=== PATIENT | male | born 1985 | race Caucasian/White ===

== ENCOUNTER 2022-02-07 14:29 | Observation (INO) | payer OTHER, SELFPAY ==
--- NOTE | 2022-02-07 14:26 | ECG_ITS ---
APPROVED REPORT Exam: Resting ECG HR:107 bpm ECG Measurements Heart Rate 107 AXES [place] 137 P 77 QRSd 106 QRS 73 QT 328 T 77 QTc 391 Conclusion SINUS TACHYCARDIA POSSIBLE LEFT ATRIAL ENLARGEMENT [-0.1mV P-WAVE IN V1/V2] ABNORMAL RHYTHM ECG UNCONFIRMED REPORT Electronically signed by : Jamshid Mattson MD 02/08/2022 15:49:18
[2022-02-07 14:30] VITALS: BP 137/96; PULSE 108; RESP 18; TEMP 36.6; O2SAT 100; BMI 20.9
--- NOTE | 2022-02-07 14:45 | PC.NURSE ---
patient walked out of ED room 1 and ambulated to [facility] where he laid down on the floor and would not respond to Tanisha Reyes RN to get back up. Patient spit on the floor and kept rolling around. We rolled patient onto a blanket and he was carried back to ED room 1 with assistance x 3 and laid back in the bed. No complications. V/S stable. Tanisha Reyes RN at BS
--- NOTE | 2022-02-07 14:58 | XR_ITS ---
PROCEDURE INFORMATION: Exam: XR Chest Exam date and time: 02/07/2022 3:27 PM Age: 36 years old Clinical indication: Shortness of breath; Additional info: Feeling of lungs closing in TECHNIQUE: Imaging protocol: XR of the chest. Views: 2 views. COMPARISON: No relevant prior studies available. FINDINGS: Airway: Patent Lungs: Unremarkable. No consolidation. Pleural spaces: Unremarkable. No pleural effusion. No pneumothorax. Heart/Mediastinum: Unremarkable. No cardiomegaly. Bones/joints: No acute skeletal abnormality or aggressive osseous lesion. IMPRESSION: No acute findings.
[2022-02-07 15:01] VITALS: BP 116/71; RESP 22; O2SAT 100
--- NOTE | 2022-02-07 15:15 | HMH.EDGENADL ---
ED Disposition Clinical Impression: Drug abuse, Methamphetamine abuse, Opiate withdrawal Disposition: Admitted as Observation Condition on Discharge: Fair Referrals: Provider,Referral, [Primary Care Provider] - - Critical Care Critical Care Time: No Attestation: On 02/07/22, the high probability of a clinically significant, sudden or life threatening deterioration of the following system(s) required my full and direct attention, intervention and personal management. The time I documented below is in addition to time spent performing reported procedures but includes the following listed in this critical care notation. Medical Decision Making - Adryan Inquiry Pt receiving controlled substance: No Vital Signs: 02/07/22 14:30 02/07/22 15:01 02/07/22 15:31 Temperature 97.8 F Temperature Source Oral Pulse Rate 67 Pulse Rate [Left Radial] 108 H Respiratory Rate 18 22 24 Blood Pressure 116/71 108/80 L Blood Pressure [Right Arm] 137/96 H Blood Pressure Mean 83 89 Blood Pressure Mean [Right Arm] 109 Blood Pressure Source [Right Arm] Automatic Cuff Blood Pressure Position [Right Arm] Sitting 02 Sat by Pulse Oximetry 100 100 100 Oxygen Delivery Method Room Air 02/07/22 16:00 Temperature Temperature Source Pulse Rate 75 Pulse Rate [Left Radial] Respiratory Rate Blood Pressure 111/71 Blood Pressure [Right Arm] Blood Pressure Mean 85 Blood Pressure Mean [Right Arm] Blood Pressure Source [Right Arm] Blood Pressure Position [Right Arm] 02 Sat by Pulse Oximetry 100 Oxygen Delivery Method - Lab Data Lab Results 02/07/22 15:52: WBC 12.0 H, RBC 5.30, Hgb 16.0, Hct 47.1, MCV 88.8, MCH 30.3, MCHC 34.1, RDW 13.8, Plt Count 494 H, MPV 10.3, Neut % (Auto) 81.9 H, Lymph % (Auto) 13.1, [place] % (Auto) 2.5, Eos % (Auto) 1.4, Baso % (Auto) 1.1, Neut # (Auto) 9.9 H, Lymph # (Auto) 1.6, [place] # (Auto) 0.3, Eos # (Auto) 0.2, Baso # (Auto) 0.1 02/07/22 15:52: Sodium 140, Potassium 3.3 L, Chloride 99, Carbon Dioxide 27, Anion Gap 17.3 H, BUN 13, Creatinine 0.70, Estimated Creat Clear 119, Estimated GFR 126, Est GFR ( Amer) 153, Glucose 138 H, Calcium 11.6 H, Total Bilirubin 0.7, AST 130 H, ALT 173 H, Alkaline Phosphatase 136 H, Troponin I < 0.01, Total Protein 9.7 H, Albumin 5.0, Globulin 4.7 H, Albumin/Globulin Ratio 1.1, Salicylates < 1.0 L, Acetaminophen < 10 L 02/07/22 16:49: Troponin I < 0.01 02/07/22 18:59: Ammonia < 9 L Result diagrams: 02/07/22 15:52 02/07/22 15:52 Orders (Tests/Meds): ED MEDICATIONS Generic Name Dose Route Start Last Admin Trade Name Freq PRN Reason Stop Dose Admin Sodium Chloride 10 ml 02/07/22 14:59 Sodium Chloride 0.9% 10ml Flush Syringe IV 03/09/22 14:58 NEEDED PRN Maintain IV Site ORDERS Category Date Time Status Drug Screen,Urine Stat Lab 02/07/22 14:59 Ordered Hepatitis Panel (4) Routine Lab 02/07/22 16:49 Received Troponin I Q3H Lab 02/07/22 21:00 Ordered - Radiology Data #1 Image(s): Chest Image Reviewed: Yes I reviewed the patient's radiology image, Yes I have reviewed radiologist's interpretation Preliminary Findings: Normal/NAD PROCEDURE INFORMATION: Exam: XR Chest Exam date and time: 02/07/2022 3:27 PM Age: 36 years old Clinical indication: Shortness of breath; Additional info: Feeling of lungs closing in TECHNIQUE: Imaging protocol: XR of the chest. Views: 2 views. COMPARISON: No relevant prior studies available. FINDINGS: Airway: Patent Lungs: Unremarkable. No consolidation. Pleural spaces: Unremarkable. No pleural effusion. No pneumothorax. Heart/Mediastinum: Unremarkable. No cardiomegaly. Bones/joints: No acute skeletal abnormality or aggressive osseous lesion. IMPRESSION: No acute findings. - ECG Data Tracing #1 EKG interpreted by Laith Payton MD: Rhythm: sinus tachyc
[2022-02-07 15:31] VITALS: BP 108/80; PULSE 67; RESP 24; O2SAT 100
--- NOTE | 2022-02-07 15:31 | PC.NURSE ---
AZEB WOLFF at ; Tanisha Reyes, RN at
--- NOTE | 2022-02-07 15:38 | PC.NURSE ---
Mother at stating the pt come back from being with a friend and told her he did some meth and thought it had narcan in it so he gave his self narcan.
[2022-02-07 16:00] VITALS: BP 111/71; PULSE 75; O2SAT 100
[2022-02-07 16:07] LABS: Basophils # 0.1 K/mm3 (0-0.2); Basophils % 1.1 % (0.1-2.0); Eosinophils # 0.2 K/mm3 (0.0-0.4); Eosinophils % 1.4 % (0.1-12.0); Hematocrit 47.1 % (42.0-52.0); Lymphocytes # 1.6 K/mm3 (0.7-4.5); Lymphocytes % 13.1 % (10-50); Mean Corpuscular HGB Conc 34.1 g/dL (31.8-35.4); Mean Corpuscular Hemoglobin 30.3 pg (27.0-31.2); Mean Corpuscular Volume 88.8 fl (80-94); Mean Platelet Volume 10.3 fl (7.4-10.4); Monocytes # 0.3 K/mm3 (0.1-1.0); Monocytes % 2.5 % (1.7-9.3); Neutrophils # 9.9 K/mm3 (1.8-7.8); Neutrophils % 81.9 % (37.0-80.0); Platelet Count 494 K/mm3 (142-424); Red Cell Distribution Width 13.8 % (11.5-17.5)
[2022-02-07 16:10] LABS: Chloride 99 mmol/L (98-107); Potassium 3.3 mmoL/L (3.5-5.1); Sodium 140 mmol/L (136-145)
[2022-02-07 16:13] LABS: Alanine Aminotransferase 173 U/L (12-78); Albumin/Globulin Ratio 1.1 (1.1-1.8); Alkaline Phosphatase 136 U/L (38-126); Anion Gap 17.3 mEq/L (5-15); Aspartate Amino Transferase 130 U/L (17-59); Bilirubin,Total 0.7 mg/dl (0.2-1.3); Blood Urea Nitrogen 13 mg/dl (9-20); Calcium 11.6 mg/dl (8.4-10.2); Carbon Dioxide 27 mmol/L (22.0-30.0); Creatinine Clearance Estimated 119 mL/min (50-200); Estimated Glomerular Filt Rate 126 ml/min (>60); GFR (African American) 153 ML/MIN (>60); Globulin 4.7 g/dL (1.3-3.2); Glucose 138 mg/dl (74-100); Total Protein,Serum 9.7 g/dl (6.3-8.2)
[2022-02-07 16:17] LABS: Acetaminophen < 10 ug/ml (10-30); Salicylate < 1.0 mg/dL (2.0-20.0)
[2022-02-07 16:27] LABS: Troponin I < 0.01 ng/ml (0.00-0.034)
--- NOTE | 2022-02-07 17:34 | PC.NURSE ---
pt in room in the stretcher.
--- NOTE | 2022-02-07 18:26 | PC.NURSE ---
pt has been asked multiple times not to spit in the floor. emesis was all over the floor
--- NOTE | 2022-02-07 18:38 | PC.NURSE ---
AZEB WOLFF at ; Tanisha Reyes, RN at
[2022-02-07 19:16] LABS: Ammonia < 9 umol/L (9-30)
--- NOTE | 2022-02-07 19:46 | PC.NURSE ---
patient refused to give urine or let nursing staff cath him for a urine sample
--- NOTE | 2022-02-07 19:54 | PC.NURSE ---
Dr. Keenan hollis re: admission
[2022-02-07 19:56] LABS: Troponin I < 0.01 ng/ml (0.00-0.034)
--- NOTE | 2022-02-07 20:05 | PC.NURSE ---
ED doctor on phone with Dr. Hussein re: admission
--- NOTE | 2022-02-07 20:15 | PC.NURSE ---
Patient admitted to [facility] to Dr. Hussein with Opiate withdrawal.
[2022-02-07 20:27] LABS: Coronavirus 19, PCR Not Detected (NotDetected); Influenza A, PCR Not Detected (NotDetected); Influenza B, PCR Not Detected (NotDetected)
--- NOTE | 2022-02-07 20:35 | PC.NURSE ---
Mother, Hanane, advised staff that she took pt keys with her.
[2022-02-07 21:05] VITALS: BP 120/85; PULSE 92; RESP 20; TEMP 37.2; O2SAT 95
--- NOTE | 2022-02-07 21:19 | PC.NURSE ---
patient up to floor via wheelchair at this time
[2022-02-07 21:38] VITALS: BP 120/85; PULSE 92; RESP 17; TEMP 36.9; O2SAT 99; BMI 18.0
[2022-02-08 04:00] VITALS: BP 102/80; PULSE 101; RESP 17; TEMP 36.8; O2SAT 93
--- NOTE | 2022-02-08 05:05 | PC.NURSE ---
Addendum entered by Priscila Acosta RN 02/08/22 05:47: pt has refused to have fluids infused Original Note: pt has not rested well since arriving to floor, has refused to keep gown on, has been incontinent of bowel and bladder, has been trying to leave room, tech at bedside for safety, bed alarm on, pt can only state name, has started to ambulate to BR with SB assist
[2022-02-08 05:28] VITALS: BMI 17.9
--- NOTE | 2022-02-08 07:19 | P.CONPHA_ITS ---
[facility] VTE Monitoring - Patient Demographics Admission date: 02/07/22 Report Date: 02/08/22 Time: 07:19 Allergies/Adverse Reactions: Patient Allergies No Known Allergies Allergy (Verified 02/08/22 00:21) Height: 1.65 m Weight: 48.897 kg Patient Problems: Current Active Problems Drug abuse (Acute) Methamphetamine abuse (Acute) Opiate withdrawal (Acute) - VTE Risk Labs: VTE Related Lab Results Hgb 16.0 g/dL (14.1-18.0) 02/07/22 15:52 Hct 47.1 % (42.0-52.0) 02/07/22 15:52 Plt Count 494 K/mm3 (142-424) H 02/07/22 15:52 BUN 13 mg/dl (9-20) 02/07/22 15:52 Creatinine 0.70 mg/dl (0.66-1.25) 02/07/22 15:52 Estimated Creat Clear 119 mL/min (50-200) 02/07/22 15:52 Was VTE Risk Assessment Performed: Yes VTE Score: 0 - Prophylaxis VTE Prophylaxis Ordered?: Yes Types of VTE Prophylaxis: TEDS Knee High Location of Applied Device: Bilateral Lower Extremeties
--- NOTE | 2022-02-10 21:06 | HMH.HPDC ---
General - General Admission date:: 02/07/22 Discharge date: 02/08/22 *Admission Date: 02/07/22 *Chief complaint: intoxication *History of present illness: Patient presented to the ER, see ER documentation for full details. Concern for intoxication and expressed concern for overdose. Unable to obtain history from patient as he had left AMA prior to being I me. Full details and ER note. 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 *Occupational Status:: other Housing: house Household Members: family *Travel in the last 8 weeks: None Family Hx:: Unable to obtain Review of Systems - Review of Systems Review of systems:: other (Left AMA before obtaining) Exam Vital signs and Labs for Last 24 Hours: Temp Pulse Resp BP Pulse Ox 98.3 F 101 H 17 102/80 L 93 L 02/08/22 04:00 02/08/22 04:00 02/08/22 04:00 02/08/22 04:00 02/08/22 04:00 I & O for Last 24 hours: Intake & Output 02/07/22 02/08/22 02/09/22 02/10/22 23:59 23:59 23:59 23:59 Weight 49.13 kg 48.897 kg Narrative: Not performed - *Routine HEENT Exam Head: Present: other Eye: Present: other ENT: Present: other - *Routine Respiratory Exam Present: other - *Routine Cardiovascular Exam Present: RRR, other - *Routine Abdominal Exam Present: other - *Routine Rectal Exam Rectal:: deferred - *Routine Genitalia Exam Genitalia:: deferred Hospital Course Hospital Course: Admitted, got to the floor, left AMA before being assessed by admitting physician DS: Diagnosis - Discharge Diagnosis (1) Drug abuse Status: Acute (2) Methamphetamine abuse Status: Acute (3) Opiate withdrawal Status: Acute Discharge Plan - Patient Discharge Instructions Patient Instructions: DI for Opioid Use Disorder, DI for Substance Use Disorder - Follow up Plan Disposition: Left Against Medical Advice Condition at discharge:: Improving Home Medications: Home Medications Medication Instructions Recorded Confirmed Type No Known Home Medications 02/07/22 02/08/22 History Prescriptions/Medication Reconciliation: No Action No Known Home Medications - Problem Reconciliation Problems Reviewed?: Yes
--- NOTE | 2022-02-11 13:48 | CARE MANAGER ---
Contacted patient related to discharge from hospital. Patient signed out AMA but does appreciate what we did for him. He states he feels like a totally different person. He denies any questions. Encourage him to make a follow up appointment with a PCP.
[2022-02-20 18:38] LABS: Hep A Ab, IgM NEGATIVE; Hepatitis B Core Antibody IgM NEGATIVE; Hepatitis B Surface Antigen NEGATIVE; Hepatitis C Antibody >11.0
== END 2022-02-08 07:24 | disposition left against medical advice (07) ==
LOC: ER 20:13 → 2ND 20:22
PROVIDERS: Admitting Provider Internal Medicine Adolescent Medicine; Emergency Provider Emergency Medicine; Visit Provider Internal Medicine Adolescent Medicine
DX: F11.23 Opioid dependence with withdrawal (principal); Z28.310 Unvaccinated for COVID-19; F15.13 Other stimulant abuse with withdrawal
CPT/HCPCS: 71046; 80053; 80074; 80329; 82140; 84484; 85025; 93005; 99285; C9803; G0378; U0003; U0005

== ENCOUNTER 2022-07-10 15:58 | Emergency (ER) | payer OTHER, SELFPAY ==
[2022-07-10] VITALS (8 sets, daily range): BP systolic 119–134; BP diastolic 69–80; PULSE 65–80; RESP 15–20; TEMP 37.1; O2SAT 97–100; BMI 19.8
--- NOTE | 2022-07-10 16:09 | XR_ITS ---
PROCEDURE INFORMATION: Exam: XR Chest Exam date and time: 07/10/2022 4:27 PM Age: 36 years old Clinical indication: Injury or trauma; Other: Overdose TECHNIQUE: Imaging protocol: Radiologic exam of the chest. Views: 1 view. COMPARISON: CR XR CHEST 2V 02/07/2022 3:27 PM FINDINGS: The thorax is partially obscured by overlying EKG leads. Lungs: Hyperinflation, without acute airspace disease. Pleural spaces: No pleural effusion. Heart/Mediastinum: Normal configuration of the heart. Bones/joints: Unremarkable. IMPRESSION: Hyperinflation, without acute airspace disease.
--- NOTE | 2022-07-10 16:39 | HMH.EDGENADL ---
Discharge Plan Disposition Patient Disposition: Home, Self-Care Condition: Fair Prescriptions Prescriptions: New naloxone [Narcan] 4 mg/actuation spray,non-aerosol 4 mg intranasal Q2M PRN (Reason: opioid overdose) Qty: 2 0RF Rx Instructions: spray 1 dose into ONE nostril; alternate nostrils w each dose until help arrives Referrals Follow up/Referrals: Provider,Referral, MD [Primary Care Provider] - See instructions Activity Restrictions/Add. Instructions Additional Instructions/Restrictions: You have been evaluated for drug overdose. Please fill prescription for naloxone. Teach others around you how to use it if they find you overdosed. You may use it for someone else. Please return to the emergency department or follow-up with your primary care doctor when you decide you would like drug treatment. Return to the emergency department for any new or worsening symptoms Clinical Impressions Clinical Impression: Accidental heroin overdose Instructions Patient Instructions: DI for Drug Overdose in Adults Discharge ED Provider: Alaina Quinones Adult HPI General Chief complaint: Overdose Stated complaint: OVERDOSE Time Seen by Provider: 07/10/22 16:08 Mode of Arrival: EMS Source of Information: Patient Limitations: No Limitations Description of Symptoms (Recalled from ER Triage Doc. by RN): pt to ed c/o overdose. pt admits to shooting up fentanyl. pr ems pt self-administered nasal narcan before calling ems. ems reports giving her 1mg of IV narcan in route to ed. pt denies any pain. History of Present Illness HPI narrative: 36-year-old male presenting to the emergency department by EMS. He called EMS for himself. Told them he had overdosed on heroin. He uses heroin every day. Accidentally took too much. Administered 1 dose of intranasal Narcan to himself. When EMS arrived he was lethargic, minimally responsive. They replaced an IV and gave 1 mg IV naloxone. After that he was awake and alert. Says he uses heroin every day. Was not trying to . Accidentally took too much. He does not think that he has an addiction problem. Does not think that now is a good time to stop using. Denies coingestions. No current headache, chest pain, shortness of breath Related Data Previous Rx's Medication Instructions Recorded naloxone 4 mg/actuation nasal 4 mg intranasal Q2M PRN opioid 07/10/22 spray (Narcan) overdose #2 ea Allergies Allergy/AdvReac Type Severity Reaction Status Date / Time No Known Allergies Allergy Verified 02/08/22 00:21 [facility] Social History Smoking Status: Current every day smoker tobacco type: cigarettes packs per day: 1 second hand exposure: Yes alcohol intake: never substance use type: methamphetamine current occupational status: other Travel in the last 8 weeks: None household members: family housing: house ROS Obtained: Yes All systems reviewed & no additional complaints except as documented Constitutional Constitutional: Reports fatigue, Denies fever(s), Denies headache(s), Reports poor appetite and Reports malaise Eyes Eyes: Denies blurry vision ENT Ears, Nose, Mouth, and Throat: Denies dizziness, Denies headache(s) and Denies neck pain Cardiovascular Cardiovascular: Denies chest pain, Denies dyspnea and Denies palpitations Respiratory Respiratory: Denies cough and Denies dyspnea Gastrointestinal Gastrointestingal: Reports diarrhea; Denies abdominal pain or vomiting Musculoskeletal Musculoskeletal: Denies neck pain Neurologic Neurologic: Denies dizziness and Denies headache(s) Endocrine Endocrine: Reports fatigue and Denies palpitations Physical Exam General General appearance: alert and in no apparent distress Head Head exam: atraumatic and normocephalic Eye Eye exam: Present normal appearance and EOMI; Absent conjunctival redness ENT ENT exam: Present normal exam, normal oropharynx and mucous membranes moist Respiratory Respirat
--- NOTE | 2022-07-10 16:48 | PC.NURSE ---
father at the bedside
[2022-07-10 17:23] LABS: POC Glucose,Bedside 110 (70-110)
--- NOTE | 2022-07-10 18:40 | PC.NURSE ---
no needs at this time. updated that we are waiting 4h post narcan for obs.
== END 2022-07-10 19:55 | disposition home or self-care (01) ==
PROVIDERS: Emergency Provider Emergency Medicine
DX: T40.1X1A Poisoning by heroin, accidental (unintentional), initial encounter (principal)
CPT/HCPCS: 71045; 82962; 99283

== ENCOUNTER 2022-09-12 12:26 | Emergency (ER) | payer OTHER, SELFPAY ==
[2022-09-12] VITALS (8 sets, daily range): BP systolic 109–157; BP diastolic 75–96; PULSE 67–94; RESP 12–22; TEMP 36.5–36.7; O2SAT 97–100; BMI 22.8
[2022-09-12 12:59] LABS: Chloride 98 mmol/L (98-107); Potassium 3.5 mmoL/L (3.5-5.1); Sodium 138 mmol/L (136-145)
[2022-09-12 13:01] LABS: Alanine Aminotransferase 50 U/L (12-78); Aspartate Amino Transferase 46 U/L (17-59); Basophils # 0.1 K/mm3 (0-0.2); Blood Urea Nitrogen 20 mg/dl (9-20); Creatinine Clearance Estimated 107 mL/min (50-200); Eosinophils # 0.3 K/mm3 (0.0-0.4); Eosinophils % 3.3 % (0.1-12.0); Estimated Glomerular Filt Rate 94 ml/min (>60); GFR (African American) 114 ML/MIN (>60); Hematocrit 46.1 % (42.0-52.0); Lymphocytes # 3.6 K/mm3 (0.7-4.5); Lymphocytes % 34.3 % (10-50); Mean Corpuscular HGB Conc 32.6 g/dL (31.8-35.4); Mean Corpuscular Hemoglobin 29.4 pg (27.0-31.2); Mean Corpuscular Volume 90.3 fl (80-94); Mean Platelet Volume 9.3 fl (7.4-10.4); Monocytes # 0.6 K/mm3 (0.1-1.0); Monocytes % 5.6 % (1.7-9.3); Neutrophils # 5.8 K/mm3 (1.8-7.8); Neutrophils % 55.8 % (37.0-80.0); Platelet Count 585 K/mm3 (142-424); Red Blood Count 5.11 M/mm3 (4.60-6.20); Red Cell Distribution Width 12.9 % (11.5-17.5); White Blood Count 10.4 K/mm3 (4.8-10.8)
[2022-09-12 13:02] LABS: Albumin Level 4.8 g/dl (3.5-5.0); Albumin/Globulin Ratio 1.3 (1.1-1.8); Alkaline Phosphatase 109 U/L (38-126); Anion Gap 13.5 mEq/L (5-15); Bilirubin,Total 0.5 mg/dl (0.2-1.3); Calcium 10.5 mg/dl (8.4-10.2); Carbon Dioxide 30 mmol/L (22.0-30.0); Globulin 3.8 g/dL (1.3-3.2); Glucose 103 mg/dl (74-100); Total Protein,Serum 8.6 g/dl (6.3-8.2)
--- NOTE | 2022-09-12 13:17 | PC.NURSE ---
PT ASSISTED TO BR
--- NOTE | 2022-09-12 13:24 | PC.NURSE ---
pt ambulated up to BR with assistance , urine sent to lab
--- NOTE | 2022-09-12 13:25 | HMH.EDGENADL ---
Discharge Plan Disposition Patient Disposition: Home, Self-Care Condition: Good Prescriptions Prescriptions: No Action naloxone [Narcan] 4 mg/actuation spray,non-aerosol 4 mg intranasal Q2M PRN (Reason: opioid overdose) Qty: 2 0RF Rx Instructions: spray 1 dose into ONE nostril; alternate nostrils w each dose until help arrives Referrals Follow up/Referrals: Provider,Referral, [Primary Care Provider] - See instructions Activity Restrictions/Add. Instructions Additional Instructions/Restrictions: Follow-up with primary care provider, call for appointment. Clinical Impressions Clinical Impression: Substance abuse, Opiate withdrawal, Methamphetamine abuse Instructions Patient Instructions: DI for Substance Use Disorder, DI for Drug or Alcohol Withdrawal, DI for Drug Overdose in Adults Discharge ED Provider: Laith Payton General Adult HPI General Chief complaint: Overdose Stated complaint: OVERDOSE Time Seen by Provider: 09/12/22 13:24 Mode of Arrival: Wheelchair Limitations: No Limitations Description of Symptoms (Recalled from ER Triage Doc. by RN): PT STATES HE OVERDOSED ABOUT 0900 ON [place]. REPORTS SHOOTING UP IN RIGHT ARM. THEN SELF ADMINISTERED NASAL NARCAN X 3. History of Present Illness HPI narrative: Patient states that he overdosed on fentanyl this morning. Administered Narcan 2 himself 3 times. Arrives in apparent withdrawal with vomiting and fecal incontinence. Currently says he is feeling better. Denies any pain. Denies any difficulty breathing. Related Data Previous Rx's Medication Instructions Recorded naloxone 4 mg/actuation nasal 4 mg intranasal Q2M PRN opioid 07/10/22 spray (Narcan) overdose #2 ea Allergies Allergy/AdvReac Type Severity Reaction Status Date / Time No Known Allergies Allergy Verified 02/08/22 00:21 [facility] Disclaimer: The information contained in this section may have been updated after the patient was seen, as this information can be updated by other users. Medical History (Updated 09/12/22 @ 17:04 by Laith Payton MD) No significant past medical history Family History (Updated 09/12/22 @ 13:45 by Jeanne Pete RN) Other No significant family history Social History (Updated 09/12/22 @ 13:45 by Jeanne Pete RN) Smoking Status: Current every day smoker tobacco type: cigarettes packs per day: 1 second hand exposure: Yes alcohol intake: current substance use type: methamphetamine current occupational status: other Travel in the last 8 weeks: None household members: family housing: house ROS Obtained: Yes Systems reviewed as appropriate & no additional complaints except as documented Constitutional Constitutional: Denies fever(s), Denies headache(s) and Denies weakness ENT Ears, Nose, Mouth, and Throat: Denies headache(s), Denies nasal discharge and Denies sore throat Cardiovascular Cardiovascular: Denies chest pain Respiratory Respiratory: Denies shortness of breath and Denies cough Gastrointestinal Gastrointestingal: Reports diarrhea and vomiting; Denies abdominal pain or constipation Genitourinary Male Genitourinary: Denies difficulty urinating and Denies flank pain Musculoskeletal Musculoskeletal: Denies numbness Neurologic Neurologic: Denies headache(s), Denies numbness and Denies weakness Physical Exam General General appearance: alert Comment: Upon arrival laying with eyes closed turning his head [id number] repeatedly. When spoken to he awakens and opens his eyes and cooperates. Speech is mumbling and at times incoherent. He does answer simple yes/no questions and some short answer questions. Head Head exam: atraumatic and normocephalic Eye Eye exam: Present normal appearance, PERRL (Pupils are 4 to 5 mm and equal bilaterally) and EOMI ENT ENT exam: Present mucous membranes dry Neck Neck exam: Present normal inspection and trachea midline Chest Chest inspection: Present baljeet
--- NOTE | 2022-09-12 13:33 | PC.NURSE ---
pt in restroom cleaning himself up, have checked on him several times and he said he was fine
--- NOTE | 2022-09-12 13:43 | PC.NURSE ---
PT RETURNED TO BED, WARM BLANKETS PROVIDED
[2022-09-12 13:55] LABS: Barbiturates Screen,Urine Negative ng/ml (<200); Benzodiazepines Screen,Urine Negative ng/ml (<200)
[2022-09-12 13:56] LABS: Amphetamine/Metha Screen,Urine Positive ng/ml (<1000); Cannabinoid Screen,Urine Negative ng/ml (<50)
[2022-09-12 14:00] LABS: Opiate Screen,Urine Negative ng/ml (<300)
--- NOTE | 2022-09-12 14:02 | PC.NURSE ---
PT RESTING WITH EYES CLOSED, NO NEEDS AT THIS TIME
[2022-09-12 14:08] LABS: Cocaine Screen,Urine Negative ng/ml (<300); Methadone Screen,Urine Negative ng/ml (<300)
[2022-09-12 14:09] LABS: Phencyclidine Screen,Urine Negative ng/ml (<25)
--- NOTE | 2022-09-12 15:18 | PC.NURSE ---
pt in bed sleeping
--- NOTE | 2022-09-12 16:43 | PC.NURSE ---
at pt is A&O x4, pt is ready to go home.
--- NOTE | 2022-09-12 17:19 | PC.NURSE ---
mother here to get pt, pt in room getting ready to leave
== END 2022-09-12 17:15 | disposition home or self-care (01) ==
PROVIDERS: Emergency Provider Emergency Medicine
DX: F11.13 Opioid abuse with withdrawal (principal); R11.10 Vomiting, unspecified; R15.9 Full incontinence of feces; T40.411A Poisoning by fentanyl or fentanyl analogs, accidental (unintentional), initial encounter; F17.210 Nicotine dependence, cigarettes, uncomplicated
CPT/HCPCS: 80053; 80305; 85025; 96374; 99284; J2405

== ENCOUNTER 2022-11-12 17:20 | Emergency (ER) | payer OTHER, SELFPAY ==
[2022-11-12 17:46] VITALS: BP 130/86; PULSE 78; RESP 20; TEMP 36.8; O2SAT 100; BMI 21.6
--- NOTE | 2022-11-12 17:57 | HMH.EDGENADL ---
Discharge Plan Disposition Patient Disposition: Home, Self-Care Prescriptions Prescriptions: No Action metoprolol tartrate 25 mg tablet 12.5 mg PO DAILY Qty: 15 2RF cephalexin 500 mg capsule 500 mg PO TID Qty: 21 0RF naloxone [Narcan] 4 mg/actuation spray,non-aerosol 4 mg intranasal Q2M PRN (Reason: opioid overdose) Qty: 2 0RF Rx Instructions: spray 1 dose into ONE nostril; alternate nostrils w each dose until help arrives Referrals Follow up/Referrals: Sergio Patton MD [Primary Care Provider] - See instructions Activity Restrictions/Add. Instructions Additional Instructions/Restrictions: No emergent medical condition identified. Please follow-up with Dr. Patton as previously instructed and reschedule your stress and echo that you missed recently. Please continue to eat and drink normally and follow-up with your methadone clinic as you have scheduled on the . Return with any concerning symptoms specifically if you pass out. Clinical Impressions Clinical Impression: Near syncope, Substance abuse Instructions Patient Instructions: DI for Syncope in Adults (Fainting), DI for Syncope in Children (Fainting) Discharge ED Provider: Arturo Up Adult HPI General Chief complaint: Syncope Stated complaint: feeling faint Time Seen by Provider: 11/12/22 17:57 Mode of Arrival: Ambulatory Source of Information: Patient Limitations: No Limitations Description of Symptoms (Recalled from ER Triage Doc. by RN): pt to ed states he has been having near syncopal episodes. pt states he is an active drug user of nothing specific and he states after he uses he has a near syncopal episode and narcans himself. History of Present Illness HPI narrative: Patient is a 36-year-old male who presents with near syncopal episodes over the last few months. States that he has been using meth chronically and recently stopped this 2 weeks ago and is now just using fentanyl. Patient denies any chest pain shortness of breath abdominal pain nausea vomiting or diarrhea. Denies any exertional symptoms. States that he was supposed to have a stress test and an echo on Fletcher's Day however he missed this because he stayed up all night watching TV with his dad. He is closely followed by Dr. Patton. He is currently completely asymptomatic and had an episode this morning. He does state that sometimes when he is doing drugs he will Narcan himself when he is concerning concerned that he is overdosing however he is not sure if his lightheaded symptoms are clearly associated with this. He has not lost consciousness and states that most of them he does not feel like is not lose consciousness he describes it more of his a lightheadedness but he has no no symptoms currently Related Data Previous Rx's Medication Instructions Recorded naloxone 4 mg/actuation nasal 4 mg intranasal Q2M PRN opioid 07/10/22 spray (Narcan) overdose #2 ea cephalexin 500 mg capsule 500 mg PO TID #21 caps 10/13/22 metoprolol tartrate 25 mg tablet 12.5 mg PO DAILY #15 tabs 10/13/22 Allergies Allergy/AdvReac Type Severity Reaction Status Date / Time No Known Allergies Allergy Verified 10/13/22 13:42 [facility] Disclaimer: The information contained in this section may have been updated after the patient was seen, as this information can be updated by other users. Medical History No significant past medical history Family History (Updated 10/13/22 @ 13:46 by Maile Shen) Father Diabetes Social History Smoking Status: Current every day smoker tobacco type: cigarettes packs per day: 1 second hand exposure: Yes alcohol intake: current substance use type: methamphetamine current occupational status: other Travel in the last 8 weeks: None household members: family housing: house ROS Obtained: Yes All syste
--- NOTE | 2022-11-12 17:58 | ECG_ITS ---
APPROVED REPORT Exam: Resting ECG HR:73 bpm ECG Measurements Heart Rate 73 AXES MO 143 P 55 QRSd 105 QRS 51 QT 372 T 60 QTc 398 Conclusion SINUS RHYTHM NORMAL ECG UNCONFIRMED REPORT Electronically signed by : Jamshid Mattson MD 11/13/2022 08:49:31
[2022-11-12 18:01] VITALS: BP 143/90; PULSE 76; O2SAT 99
[2022-11-12 18:53] VITALS: BP 132/76; PULSE 73; RESP 16; TEMP 37; O2SAT 99
== END 2022-11-12 18:58 | disposition home or self-care (01) ==
PROVIDERS: Emergency Provider Student in an Organized Health Care Education/Training Program; PCP Emergency Medicine
DX: R55 Syncope and collapse (principal); F19.99 Other psychoactive substance use, unspecified with unspecified psychoactive substance-induced disorder; F17.210 Nicotine dependence, cigarettes, uncomplicated; Z83.3 Family history of diabetes mellitus
CPT/HCPCS: 93005; 99283; 99284

== ENCOUNTER 2022-11-30 21:46 | Emergency (ER) | payer OTHER, SELFPAY ==
[2022-11-30 21:53] VITALS: BMI 22.4
[2022-11-30 22:00] VITALS: BP 145/85; PULSE 99; RESP 14; TEMP 36.3; O2SAT 99; BMI 22.4
--- NOTE | 2022-11-30 22:15 | PC.NURSE ---
Addendum entered by Michelle Garza RN 11/30/22 22:43: pt received NS bolus, pecid, reglan and zofran IV at 2215. orders are placed but not carrying over to the MAR. verified medications with CHRISTAL Thomason pt tolerated medication administration. Original Note: pt received
--- NOTE | 2022-11-30 22:21 | PC.NURSE ---
Dr. Patton at
--- NOTE | 2022-11-30 22:31 | PC.NURSE ---
pt came out of the room and stated i feel better and im tired im ready to leave. pt informed he would have to sign and AMA form and was agreeable. pt denies any complaints at this time
[2022-11-30 22:51] VITALS: BP 140/80; PULSE 98; RESP 18; TEMP 36.6; O2SAT 99
[2022-11-30 22:56] LABS: Microscopic, Urine URINE MICROSCOPIC (MICROSCOPIC)
[2022-11-30 22:57] LABS: Basophils # 0.1 K/mm3 (0-0.2); Basophils % 1.2 % (0.1-2.0); Eosinophils # 0.3 K/mm3 (0.0-0.4); Eosinophils % 2.3 % (0.1-12.0); Hematocrit 45.7 % (42.0-52.0); Hemoglobin 14.8 g/dL (14.1-18.0); Lymphocytes # 3.4 K/mm3 (0.7-4.5); Lymphocytes % 27.9 % (10-50); Mean Corpuscular HGB Conc 32.3 g/dL (31.8-35.4); Mean Corpuscular Hemoglobin 28.9 pg (27.0-31.2); Mean Corpuscular Volume 89.5 fl (80-94); Mean Platelet Volume 7.7 fl (7.4-10.4); Monocytes # 0.5 K/mm3 (0.1-1.0); Monocytes % 4.2 % (1.7-9.3); Neutrophils # 7.9 K/mm3 (1.8-7.8); Neutrophils % 64.4 % (37.0-80.0); Platelet Count 702 K/mm3 (142-424); Red Cell Distribution Width 13.4 % (11.5-17.5); White Blood Count 12.2 K/mm3 (4.8-10.8)
[2022-11-30 22:58] LABS: Appearance,Urine CLEAR (Clear); Bilirubin,Urine Negative (Negative); Blood, Urine Negative (Negative); Color,Urine YELLOW (Yellow); Glucose,Urine (UA) Negative (Negative); Ketones,Urine Negative (Negative); Leukocyte Esterase,Urine Negative (Negative); Nitrate,Urine Negative (Negative); Protein,Urine TRACE (Negative); Specific Gravity, Urine 1.015 (1.005-1.030)
[2022-11-30 22:58] LABS: Alanine Aminotransferase 32 U/L (12-78); Albumin Level 4.8 g/dl (3.5-5.0); Albumin/Globulin Ratio 1.2 (1.1-1.8); Alkaline Phosphatase 76 U/L (38-126); Amylase 100 U/L (30-110); Anion Gap 15.7 mEq/L (5-15); Aspartate Amino Transferase 31 U/L (17-59); Bilirubin,Total 0.6 mg/dl (0.2-1.3); Blood Urea Nitrogen 12 mg/dl (9-20); Calcium 9.2 mg/dl (8.4-10.2); Carbon Dioxide 29 mmol/L (22.0-30.0); Chloride 99 mmol/L (98-107); Creatinine Clearance Estimated 107 mL/min (50-200); Estimated Glomerular Filt Rate 108 ml/min (>60); GFR (African American) 130 ML/MIN (>60); Globulin 3.9 g/dL (1.3-3.2); Glucose 111 mg/dl (74-100); Lipase 36 U/L (23-300); Potassium 3.7 mmoL/L (3.5-5.1); Sodium 140 mmol/L (136-145); Total Protein,Serum 8.7 g/dl (6.3-8.2)
[2022-11-30 22:59] LABS: Mucus,Urine Trace /lpf; Squamous Epithelial Cell,Urine Occasional #/hpf (0-5)
--- NOTE | 2022-12-01 00:08 | HMH.EDABDPAI ---
Discharge Plan Disposition Patient Disposition: Left Against Medical Advice Condition: Good Prescriptions Prescriptions: No Action amoxicillin 500 mg capsule 500 mg PO Q12H 10 Days Qty: 20 0RF naloxone [Narcan] 4 mg/actuation spray,non-aerosol 4 mg intranasal Q2M PRN (Reason: opioid overdose) Qty: 2 0RF Rx Instructions: spray 1 dose into ONE nostril; alternate nostrils w each dose until help arrives Clinical Impressions Clinical Impression: Abdominal pain, IVDU (intravenous drug user) Instructions Patient Instructions: DI for Acute Abdominal Pain Discharge ED Provider: Pooja (ED)Sergio Abdominal Pain HPI General Chief Complaint: Abdominal Pain Stated Complaint: dizzy, stomach pain Time Seen by Provider: 11/30/22 22:00 Mode of Arrival: Ambulatory Source of Information: Patient and Medical Record Limitations: No Limitations Description of Symptoms (Recalled from ER Triage Doc. by RN): pt c/o feeling bloated in his abd. pt states over the past few months he has had RUQ pain and nausea. pt also states he has episodes of light headedness at which time his vision gets blurry. pt states the last episode of light headedness was a few hours ago. pt also reports using IV fentanyl daily. History of Present Illness HPI narrative: upper abd pain and rt upper abd pain with no fever - has hx of ivdu complaint: abdominal pain Onset (ago): day(s) Consistency: intermittent Location: RUQ Severity: similar to previous episodes Associated symptoms: nausea Related Data Previous Rx's Medication Instructions Recorded naloxone 4 mg/actuation nasal 4 mg intranasal Q2M PRN opioid 07/10/22 spray (Narcan) overdose #2 ea amoxicillin 500 mg capsule 500 mg PO Q12H infection 10 days 11/29/22 #20 caps Allergies Allergy/AdvReac Type Severity Reaction Status Date / Time No Known Allergies Allergy Verified 11/30/22 22:09 [facility] Disclaimer: The information contained in this section may have been updated after the patient was seen, as this information can be updated by other users. Medical History No significant past medical history Family History (Updated 10/13/22 @ 13:46 by Maile Shen) Father Diabetes Social History (Updated 11/30/22 @ 22:06 by Radha Branden, RN) Smoking Status: Never smoker second hand exposure: Yes alcohol intake: current substance use type: IV drugs and methamphetamine counseling given: Yes (pt reports injecting fentynl daily) current occupational status: other Travel in the last 8 weeks: None household members: family housing: house ROS Obtained: Yes All systems reviewed & no additional complaints except as documented Physical Exam General General appearance: alert Head Head exam: normocephalic Eye Eye exam: Present PERRL and EOMI; Absent scleral icterus ENT ENT exam: Present mucous membranes moist Neck Neck exam: Present full ROM and trachea midline; Absent tenderness Respiratory Respiratory exam: Present normal lung sounds bilaterally; Absent respiratory distress Cardiovascular Cardiovascular exam: Present regular rate; Absent systolic murmur or rubs Abdominal Exam Abdominal exam: Present soft, tenderness and Huff's sign; Absent guarding, rebound or rigidity Abdominal tenderness: Present RUQ and mild Extremities Exam Extremities exam: Present full ROM; Absent joint swelling Back Exam Back exam: Absent CVA tenderness (R) Neurological Exam Neurological exam: Present alert, oriented X3 and CN II-XII intact; Absent motor sensory deficit Psychiatric Psychiatric exam: Present normal affect Skin Skin exam: Absent rash Medical Decision Making Medical Records Medical records reviewed: Yes I reviewed the patient's medical records. Adryan Inquiry Pt receiving controlled substance: No Vital Signs: 11/30/22 22:00 11/30/22 22:51 Temperature 97.4 F L 98 F Temperature Source
== END 2022-11-30 22:55 | disposition left against medical advice (07) ==
PROVIDERS: Emergency Provider Emergency Medicine; PCP Emergency Medicine
DX: R10.11 Right upper quadrant pain (principal); R42 Dizziness and giddiness; F19.90 Other psychoactive substance use, unspecified, uncomplicated; R11.0 Nausea; Z83.3 Family history of diabetes mellitus
CPT/HCPCS: 80053; 81001; 82150; 83690; 85025; 96361; 96374; 96375; 96376; 99284; 99285; J2405

== ENCOUNTER 2023-01-15 11:37 | Emergency (ER) | payer OTHER, SELFPAY ==
[2023-01-15 11:38] VITALS: BP 147/76; PULSE 98; RESP 18; TEMP 36.7; O2SAT 99; BMI 22.4
--- NOTE | 2023-01-15 11:42 | PC.NURSE ---
MD at bedside for eye exam
--- NOTE | 2023-01-15 11:43 | PC.NURSE ---
MD at bedside performing eye exam.
--- NOTE | 2023-01-15 11:45 | HMH.EDEYEP ---
Discharge Plan Disposition Patient Disposition: Home, Self-Care Prescriptions Prescriptions: New amoxicillin 500 mg tablet 500 mg PO QID Qty: 40 0RF Referrals Follow up/Referrals: Sergio Patton MD [Primary Care Provider] - See instructions Activity Restrictions/Add. Instructions Additional Instructions/Restrictions: You can take [id number] Tylenol and/or Motrin for your pain. Your eye does not seem to have any foreign bodies in it and there does not seem to be any scratches on your cornea. I have sent in a prescription for antibiotics for your teeth. Return to the emergency department immediately if you feel worse in any way. Follow-up with an eye doctor if you do not feel better in the next 2 to 3 days. I also suggested you follow-up with a dentist to have your teeth extracted. Clinical Impressions Clinical Impression: Dental caries, Dental infection, UV keratitis Instructions Patient Instructions: DI for Keratitis Discharge ED Provider: Nate Nieto Eye Problem HPI General Chief complaint: Eye Problems Stated complaint: Right eye redness possible metal Time Seen by Provider: 01/15/23 11:45 Mode of Arrival: Ambulatory Source of Information: Patient Limitations: No Limitations Description of Symptoms (Recalled from ER Triage Doc. 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 pt has redness and tearing noted. pt denies blurred vision. pt states he was wearing a welding helmet. History of Present Illness HPI Narrative: Patient presents to the emergency department complaining of right-sided eye irritation after having been welding yesterday. The patient believes that he may have had a foreign body enter his eye while he was while brushing his [place]. The patient denies any visual disturbance. Related Data Previous Rx's Medication Instructions Recorded amoxicillin 500 mg tablet 500 mg PO QID #40 tabs 01/15/23 Allergies Allergy/AdvReac Type Severity Reaction Status Date / Time No Known Allergies Allergy Verified 12/09/22 13:52 [facility] Disclaimer: The information contained in this section may have been updated after the patient was seen, as this information can be updated by other users. Medical History No significant past medical history Family History Father Diabetes Social History Smoking Status: Current some day smoker tobacco type: cigarettes packs per day: 1 second hand exposure: Yes alcohol intake: current substance use type: IV drugs and methamphetamine counseling given: Yes (pt reports injecting fentynl daily) current occupational status: other Travel in the last 8 weeks: None household members: family housing: house ROS Obtained: Yes All systems reviewed & no additional complaints except as documented ENT Ears, Nose, Mouth, and Throat: Reports dental pain (Bad teeth for many years) Physical Exam General General appearance: alert and in no apparent distress Head Head exam: atraumatic Eye Eye exam: Present PERRL, conjunctival redness (Right) and other (A fluorescein stain was performed and shows no corneal abrasions or foreign bodies.); Absent discharge, periorbital swelling or periorbital tenderness ENT ENT exam: Present other (Diffuse widespread dental decay with gingival erythema) Neck Neck exam: Present normal inspection Respiratory Respiratory exam: Present normal lung sounds bilaterally Cardiovascular Cardiovascular exam: Present regular rate Neurological Exam Neurological exam: Present alert and oriented X3 Medical Decision Making Adryan Inquiry Pt receiving controlled substance: No Vital Signs: 01/15/23 11:38 Temperature 98.0 F Temperature Source Oral Pulse Rate [Right Radial] 98 H Respiratory Rate 18 Blood Pressure [Right
[2023-01-15 12:03] VITALS: BP 147/76; PULSE 98; RESP 18; TEMP 36.6; O2SAT 99
== END 2023-01-15 12:06 | disposition home or self-care (01) ==
LOC: ER 11:58
PROVIDERS: Emergency Provider Emergency Medicine; PCP Emergency Medicine
DX: H16.131 Photokeratitis, right eye (principal); F17.210 Nicotine dependence, cigarettes, uncomplicated
CPT/HCPCS: 90715; 96372; 99283; 99284

== ENCOUNTER 2023-12-04 12:47 | Emergency (ER) | payer OTHER, SELFPAY ==
[2023-12-04 12:48] VITALS: BP 140/88; PULSE 82; RESP 18; TEMP 36.8; O2SAT 99; BMI 23.3
--- NOTE | 2023-12-04 13:30 | PC.NURSE ---
pt taken something to drink, no new complaints at this time.
[2023-12-04] MEDS: TET/DIPHTH/PERT-ADULT 0.5ML SYRINGE 0.5 ML IM (14:11)
--- NOTE | 2023-12-04 14:16 | ED_ITS ---
Discharge Plan Disposition Patient Disposition: Home, Self-Care Prescriptions Prescriptions: No Action amoxicillin 500 mg tablet 500 mg PO QID Qty: 40 0RF Referrals Follow up/Referrals: Kalie Sanchez APRN [Primary Care Provider] - See instructions Activity Restrictions/Add. Instructions Additional Instructions/Restrictions: Please apply a strip of ointment to your eye twice a day for the next 7 days. Please follow-up with your eye doctor within 1 week. Clinical Impressions Clinical Impression: Acute foreign body of cornea Discharge ED Provider: Manuel Ventura General Adult HPI General Chief complaint: Eye Problems Stated complaint: right eye irritation and redness Time Seen by Provider: 12/04/23 13:10 Mode of Arrival: Ambulatory Source of Information: Patient Limitations: No Limitations Description of Symptoms (Recalled from ER Triage Doc. by RN): PT REPORTS RIGHT EYE IRRITATION THAT STARTED TUESDAY NIGHT. REPORTS POSSIBLE METAL FB History of Present Illness HPI narrative: Patient is a 38-year-old deleon who presents emergency department for evaluation of ocular foreign body. Onset was acute, Tuesday patient was working when he felt something in his eye which he saw some foreign body falling out however he has had persistent foreign body sensation, eye irritation causing him to present here for continued evaluation. Related Data Previous Rx's Medication Instructions Recorded amoxicillin 500 mg tablet 500 mg PO QID #40 tabs 01/15/23 Allergies Allergy/AdvReac Type Severity Reaction Status Date / Time No Known Allergies Allergy Verified 12/09/22 13:52 [facility] Disclaimer: The information contained in this section may have been updated after the patient was seen, as this information can be updated by other users. Medical History No significant past medical history Family History Father Diabetes Social History Smoking Status: Current some day smoker tobacco type: cigarettes packs per day: 1 second hand exposure: Yes alcohol intake: current substance use type: IV drugs and methamphetamine counseling given: Yes (pt reports injecting fentynl daily) current occupational status: other Travel in the last 8 weeks: None household members: family housing: house ROS Obtained: Yes Systems reviewed as appropriate & no additional complaints except as documented Physical Exam General General appearance: alert and in no apparent distress Head Head exam: atraumatic and normocephalic Eye Eye exam: Present PERRL, EOMI, conjunctival redness and other (Ocular foreign body embedded in the right anterior medial cornea, conjunctival irritation. No significant purulence) ENT ENT exam: Present mucous membranes moist Neck Neck exam: Present normal inspection Chest Chest inspection: Present normal inspection and symmetric chest wall rise Respiratory Respiratory exam: Absent respiratory distress Cardiovascular Cardiovascular exam: Present regular rate Abdominal Exam Abdominal exam: Present soft Extremities Exam Extremities exam: Present normal inspection Neurological Exam Neurological exam: Present alert Psychiatric Psychiatric exam: Present normal affect Skin Skin exam: Present warm and dry Medical Decision Making Adryan Inquiry Pt receiving controlled substance: No Vital Signs: 12/04/23 12:48 12/04/23 14:23 Temperature 98.2 F Temperature Source Oral Pulse Rate 78 Pulse Rate [Radial] 82 Respiratory Rate 18 20 Blood Pressure 120/84 Blood Pressure [Right Arm] 140/88 Blood Pressure Mean [Right Arm] 105 Blood Pressure Source [Right Arm] Automatic Cuff Blood Pressure Position [Right Arm] Sitting 02 Sat by Pulse Oximetry 99 97 Oxygen Delivery Method Room Air Room Air Orders (Tests/Meds): ED MEDICATIONS Discontinued Medications Generic Name Dose Route Start Last Admin Trade Name Freq PRN Reason Stop Dose Admin Tetanus/Reduced Diphtheria/Acell Pertussis 0.5 ml 12/04/23 14:01 12/04/23 14:11 Tet/Diphth/Pert-Adult 0.5ml Syringe IM 12/04/23 14:02 0.5 ml .ONCE ONE Administration Medical Decision Narrative: In summary patient is a 38-year-old male with past medical history described below presents emergency department for evaluation of ocular foreign body. Tdap updated. Ocular body removed at bedside. No concern for open globe. Patient discharged with polymyxin ointment twice a day for 7 days and will follow-up with his eye doctor within 1 week. Procedure: Procedure performed was fluorescein stain. Procedure performed by Manuel Ventura. Using topical tetracaine to numb the affected eye fluorescein was subsequently applied, no fluorescein uptake. Procedure: Procedure performed a slit-lamp examination with assisted removal of corneal foreign body. Procedure performed by Manuel Ventura. Patient was placed against forehead rest, superiorly everted, eye was numbed using topical tetracaine, anterior chamber and cornea illuminated by slit lamp. Using 18- gauge needle parallel to the cornea to metal foreign bodies that were superimposed on 1 another were removed with success. No remaining foreign bodies. Patient tolerated the procedure well. There were no immediate complications. Critical Care Critical Care Time Critical Care Time: No
[2023-12-04 14:23] VITALS: BP 120/84; PULSE 78; RESP 20; O2SAT 97
[2023-12-04 14:50] VITALS: BP 138/86; PULSE 70; RESP 18; TEMP 36.6; O2SAT 99
[2023-12-04] MEDS: FLUORESCEIN SODIUM 1MG STRIP 1 MG OP (14:58)
[2023-12-04] MEDS: NEOMYCIN-BACIT-POLYM OPHTH OINT 3.5GM TUBE OP (14:59)
[2023-12-04] MEDS: TETRACAINE 0.5% OPTH SOL 15ML OP (15:00)
== END 2023-12-04 14:50 | disposition home or self-care (01) ==
PROVIDERS: Emergency Provider Emergency Medicine; PCP Nurse Practitioner
DX: T15.01XA Foreign body in cornea, right eye, initial encounter (principal); F17.210 Nicotine dependence, cigarettes, uncomplicated; Z23 Encounter for immunization; W45.8XXA Other foreign body or object entering through skin, initial encounter
CPT/HCPCS: 65222; 90471; 90715; 99283